=== PATIENT | male | born 1965 | race Caucasian/White ===

== ENCOUNTER 2017-05-12 02:46 | Emergency (ER) | payer OTHER ==
[2017-05-12 02:54] VITALS: BP 120/90
[2017-05-12] MEDS ORDERED: Sodium Chloride 0.9% 10 ML Syringe FLUSH PRN (03:07)
[2017-05-12] MEDS ORDERED: Ondansetron 4 MG/2 ML SDV IVPUSH ONE (03:07)
[2017-05-12] MEDS ORDERED: Sodium Chloride 0.9% 1,000 ML IV SCH (03:15)
--- NOTE | 2017-05-12 03:16 | EDM.PDOC ---
ED HPI GENERAL MEDICAL PROBLEM - General Chief Complaint: Gastrointestinal Problem Stated Complaint: HEADACHE DRY HEAVES SORE THROAT Time Seen by Provider: 05/12/17 02:55 Source of Information: Reports: Patient History Limitations: Reports: No Limitations - History of Present Illness INITIAL COMMENTS - FREE TEXT/NARRATIVE: The patient presents with a fever, cough, bodyaches, nausea, vomiting and sore throat. This all started a few days ago. He has been coughing up white/ yellowish phlegm. He has some upper abdominal pain when he vomits. He has no diarrhea. He has some chest pain at times. He does feel short of breath at times also. Onset: Gradual Duration: Day(s): (2) Location: Reports: Chest Quality: Reports: Pressure Severity: Mild Improves with: Reports: None Worsens with: Reports: Other (cough) abdomen, epigastric Pain Score (Numeric/FACES): 5 - Related Data Allergies Allergy/AdvReac Type Severity Reaction Status Date / Time vancomycin Allergy Other Verified 05/12/17 02:54 Home Meds: Home Meds Aspirin 81 mg PO BEDTIME 02/06/15 [History] Clopidogrel [Plavix] 75 mg PO BEDTIME 02/06/15 [History] Simvastatin [Zocor] 40 mg PO BEDTIME 02/06/15 [History] Azithromycin [IJD: Azithromycin] 250 mg PO DAILY #6 tab 05/12/17 [Rx] Codeine/Promethazine [Phenergan with Codeine] 10 ml PO Q6HR PRN #240 ml [Rx] Past Medical History HEENT History: Reports: Impaired Vision Cardiovascular History: Reports: High Cholesterol, Stents Gastrointestinal History: Reports: Gastritis Other Dermatologic History: New onset since 02/06/15 - Past Surgical History Other Cardiovascular Surgeries/Procedures: 2007 GI Surgical History: Reports: Colonoscopy Social & Family History - Family History Family Medical History: Noncontributory - Tobacco Use Smoking Status *Q: Former Smoker Years of Tobacco use: 20 Packs/Tins Daily: 1 Used Tobacco, but Quit: No Month Tobacco Last Used: 10 Second Hand Smoke Exposure: No - Caffeine Use Caffeine Use: Reports: Soda - Recreational Drug Use Recreational Drug Use: No ED ROS GENERAL - Review of Systems Review Of Systems: See Below Constitutional: Reports: Fever, Chills, Malaise, Weakness, Fatigue HEENT: Reports: Throat Pain Respiratory: Reports: Shortness of Breath, Cough Cardiovascular: Reports: Chest Pain Endocrine: Reports: No Symptoms GI/Abdominal: Reports: Abdominal Pain, Nausea, Vomiting. Denies: Diarrhea : Reports: No Symptoms Musculoskeletal: Reports: No Symptoms ED EXAM, GI/ABD - Physical Exam Exam: See Below Exam Limited By: No Limitations General Appearance: Alert, No Apparent Distress Ears: Normal External Exam Nose: Normal Inspection Throat/Mouth: Other (Erythema of the pharynx) Head: Atraumatic, Normocephalic Neck: Normal Inspection Respiratory/Chest: No Respiratory Distress, Lungs Clear, Normal Breath Sounds Cardiovascular: Regular Rate, Rhythm, No Edema, No Murmur GI/Abdominal Exam: Soft, Non-Tender, No Organomegaly, No Mass Back Exam: Normal Inspection EKG INTERPRETATION EKG Date: 05/12/17 Time: 03:14 Rhythm: Other (sinus tachycardia) Rate (Beats/Min): [address] Flat: Normal P-Wave: Present QRS: Normal ST-T: Normal QT: Normal Course - Vital Signs Last Recorded V/S: Last Vital Signs Temp 100 F 05/12/17 02:50 Pulse 124 H 05/12/17 02:50 Resp 20 05/12/17 02:50 BP 120/90 05/12/17 02:50 Pulse Ox 97 05/12/17 02:50 - Orders/Labs/Meds Orders: Active Orders 24 hr Category Date Time Status Cardiac Monitoring [RC] . DIRECTED Care 05/12/17 03:07 Active EKG Documentation Completion [RC] STAT Care 05/12/17 03:07 Active Peripheral IV Care [RC] . DIRECTED Care 05/12/17 03:08 Active Chest 1V Frontal [CR] Stat Exams 05/12/17 03:08 Taken CULTURE SPUTUM + SMEAR [RM] Stat Lab 05/12/17 04:25 Ordered CULTURE STREP A CONFIRMATION [RM] Stat Lab 05/12/17 03:17 Results STREP SCRN A RAPID W CULT CONF [RM] Stat Lab 05/12/17 03:17 Results Sodium Chloride 0.9% [Normal Saline] 1,000 ml Med 05/12/17 03:15 Active IV .BOLUS Sodium Chloride 0.9% [Saline Flush] Med 05/12/17 03:07 Active 10 ml FLUSH ASDIRECTED PRN cefTRIAXone [Rocephin] 1 gm Med 05/12/17 04:27 Ordered Sodium Chloride 0.9% [Normal Saline] 100 ml IV ONETIME ED Antiemetic Medication Reflex [OM.PC] Stat Oth 05/12/17 03:07 Ordered Peripheral IV Insertion Adult [OM.PC] Stat Oth 05/12/17 03:07 Ordered Medication Orders Sodium Chloride (Normal Saline) 1,000 mls @ 1,000 mls/hr IV .BOLUS MARY Last Admin: 05/12/17 03:14 Dose: 1,000 mls/hr Sodium Chloride (Saline Flush) 10 ml FLUSH ASDIRECTED PRN PRN Reason: Keep Vein Open Last Admin: 05/12/17 03:14 Dose: 10 ml Labs: Laboratory Tests 05/12/17 05/12/17 Range/Units 03:00 03:00 WBC 13.59 H (4.23-9.07) K/mm3 RBC 5.11 (4.63-6.08) M/mm3 Hgb 15.7 (13.7-17.5) gm/L Hct 45.3 (40.1-51.0) % MCV 88.6 (79.0-92.2) fl MCH 30.7 (25.7-32.2) pg MCHC 34.7 (32.2-35.5) g/dl RDW Std Deviation 41.8 (35.1-43.9) fL Plt Count 202 (163-337) K/mm3 MPV 11.2 (9.4-12.3) fl Neut % (Auto) 87.4 H (34.0-67.9) % Lymph % (Auto) 6.4 L (21.8-53.1) % [place] % (Auto) 6.0 (5.3-12.2) % Eos % (Auto) 0 L (0.8-7.0) Baso % (Auto) 0.1 (0.1-1.2) % Neut # (Auto) 11.86 H (1.78-5.38) K/mm3 Lymph # (Auto) 0.87 L (1.32-3.57) K/mm3 [place] # (Auto) 0.82 (0.30-0.82) K/mm3 Eos # (Auto) 0.00 L (0.04-0.54) K/mm3 Baso # (Auto) 0.02 (0.01-0.08) K/mm3 Manual Slide Review Normal smear Sodium 140 (136-145) mEq/L Potassium 3.9 (3.5-5.1) mEq/L Chloride 102 (98-107) mEq/L Carbon Dioxide 22 (21-32) mEq/L Anion Gap 19.9 H (5-15) BUN 14 (7-18) mg/dL Creatinine 1.3 (0.7-1.3) mg/dL Est Cr Clr Drug Dosing 67.07 mL/min Estimated GFR (MDRD) 58 (>60) mL/min BUN/Creatinine Ratio 10.8 L (14-18) Glucose 151 H (74-106) mg/dL Calcium 9.4 (8.5-10.1) mg/dL Total Bilirubin 1.1 H (0.2-1.0) mg/dL AST 22 (15-37) U/L ALT 39 (16-63) U/L Alkaline Phosphatase 106 (46-116) U/L Troponin I < 0.017 (0.00-0.056) ng/mL Total Protein 8.6 H (6.4-8.2) g/dl Albumin 4.6 (3.4-5.0) g/dl Globulin 4.0 gm/dL Albumin/Globulin Ratio 1.2 (1-2) Lipase 207 (73-393) U/L Meds: Medications Generic Name Dose Route Start Last Admin Trade Name Freq PRN Reason Stop Dose Admin Sodium Chloride 1,000 mls @ 1,000 mls/hr 05/12/17 03:15 05/12/17 03:14 Normal Saline IV 1,000 mls/hr .BOLUS MARY Administration Sodium Chloride 10 ml 05/12/17 03:07 05/12/17 03:14 Saline Flush FLUSH 10 ml ASDIRECTED PRN Administration Keep Vein Open Discontinued Medications Generic Name Dose Route Start Last Admin Trade Name Freq PRN Reason Stop Dose Admin Ondansetron HCl 4 mg 05/12/17 03:07 05/12/17 03:13 Zofran IVPUSH 05/12/17 03:08 4 mg ONETIME ONE Administration - Re-Assessments/Exams Free Text/Narrative Re-Assessment/Exam: 05/12/17 03:18 I ordered an IV NS 1L bolus, zofran 4mg IV, labs, EKG, strep and influenza. 05/12/17 04:19 His EKG shows a sinus tachycardia with no acute changes. His CXR shows no infiltrates. His strep and influenza are negative. 05/12/17 04:21 His WBC was elevated at 13.59. His anion gap is elevated at 19.9. His glucose was elevated at 151. His troponin was negative. His lipase was negative. 05/12/17 04:27 The patient feels a little better. When I went into to talk to him, he coughed up some thick sputum. I sent that for culture. His CXR did not show an infiltrate. He may have early pneumonia or bronchitis. I will give him a dose of rocephin and some zithromax for home and some phenergan with codeine. Departure - Departure Time of Disposition: 04:30 Disposition: Home, Self-Care 01 Condition: Good Clinical Impression: Viral upper respiratory illness - Discharge Information Prescriptions: Codeine/Promethazine [Phenergan with Codeine] 10 ml PO Q6HR PRN #240 ml PRN Reason: Cough Azithromycin [IJD: Azithromycin] 250 mg PO DAILY #6 tab Referrals: PCP,None [Primary Care Provider] - Forms: ED Department Discharge, ED Return to Work/School Form Additional Instructions: Take the zithromax 2 pills on day 1 and 1 pill on day 2 through 5. Take the phenergan with codeine 10mls every 4 to 6hours as needed for cough. Please return if you are worse. - My Orders Last 24 Hours: My Active Orders 05/12/17 03:07 Cardiac Monitoring [RC] . DIRECTED EKG Documentation Completion [RC] STAT Sodium Chloride 0.9% [Saline Flush] 10 ml FLUSH ASDIRECTED PRN ED Antiemetic Medication Reflex [OM.PC] Stat Peripheral IV Insertion Adult [OM.PC] Stat 05/12/17 03:08 Peripheral IV Care [RC] . DIRECTED Chest 1V Frontal [CR] Stat 05/12/17 03:15 Sodium Chloride 0.9% [Normal Saline] 1,000 ml IV .BOLUS 05/12/17 03:17 CULTURE STREP A CONFIRMATION [] Stat STREP SCRN A RAPID W CULT CONF [RM] Stat 05/12/17 04:25 CULTURE SPUTUM + SMEAR [RM] Stat 05/12/17 04:27 cefTRIAXone [Rocephin] 1 gm Sodium Chloride 0.9% [Normal Saline] 100 ml IV ONETIME - Assessment/Plan Last 24 Hours: My Active Orders 05/12/17 03:07 Cardiac Monitoring [RC] . DIRECTED EKG Documentation Completion [RC] STAT Sodium Chloride 0.9% [Saline Flush] 10 ml FLUSH ASDIRECTED PRN ED Antiemetic Medication Reflex [OM.PC] Stat Peripheral IV Insertion Adult [OM.PC] Stat 05/12/17 03:08 Peripheral IV Care [RC] . DIRECTED Chest 1V Frontal [CR] Stat 05/12/17 03:15 Sodium Chloride 0.9% [Normal Saline] 1,000 ml IV .BOLUS 05/12/17 03:17 CULTURE STREP A CONFIRMATION [] Stat STREP SCRN A RAPID W CULT CONF [RM] Stat 05/12/17 04:25 CULTURE SPUTUM + SMEAR [RM] Stat 05/12/17 04:27 cefTRIAXone [Rocephin] 1 gm Sodium Chloride 0.9% [Normal Saline] 100 ml IV ONETIME
[2017-05-12] MEDS ORDERED: cefTRIAXone 1 GM in Sodium Chloride 0.9% 100 ML IV ONE (04:27)
[2017-05-12] MEDS ORDERED: Acetaminophen 325 MG Tab PO ONE (04:33)
--- NOTE | 2017-05-12 06:56 | CR ---
Chest: Portable view of the chest was obtained. Comparison: Prior chest x-ray of 02/08/15. Heart size is normal. Minimal tortuosity of the thoracic aorta is seen. Small hiatal hernia may be present. Lungs are clear. Bony structures are grossly intact. Impression: 1. Incidental findings. Nothing acute is identified on portable chest x-ray. Diagnostic code #2
== END 2017-05-12 05:10 | disposition home or self-care (01) ==
LOC: JD.ED 02:46
DX: J06.9 Acute upper respiratory infection, unspecified (principal); E78.00 Pure hypercholesterolemia, unspecified; Z88.1 Allergy status to other antibiotic agents; Z79.82 Long term (current) use of aspirin; Z79.899 Other long term (current) drug therapy; Z87.891 Personal history of nicotine dependence
CPT/HCPCS: 36415; 71045; 80053; 83690; 84484; 85025; 87070; 87077; 87081; 87184; 87205; 87430; 87804; 93005; 96361; 96365; 96375; 99284; A9270; J0696; J2405; J7030; J7040; J7050; 93010

== ENCOUNTER 2019-12-15 17:14 | Emergency (ER) | payer OTHER ==
[2019-12-15 17:50] VITALS: BP 121/84; PULSE 113
[2019-12-15] MEDS ORDERED: Sodium Chloride 0.9% 10 ML Syringe FLUSH PRN ×2 (19:12→19:43)
--- NOTE | 2019-12-15 19:12 | EDM.PDOC ---
ED HPI GENERAL MEDICAL PROBLEM - General Chief Complaint: Back Pain or Injury Stated Complaint: BACK PAIN Time Seen by Provider: 12/15/19 19:06 Source of Information: Reports: Patient History Limitations: Reports: No Limitations - History of Present Illness INITIAL COMMENTS - FREE TEXT/NARRATIVE: 54-year-old male presents to the ED for evaluation of worsening low back pain. Patient reports that on Thursday--Dec 09-- 5 days ago he had washed up his vehicle and when he went to step out of his truck into the garage his feet were wet and when he hit the running boards he slipped and fell directly onto the concrete on his buttocks and back. States it knocked the wind out of him. Since that time he has had worsening right flank and low back pain with intermittent muscle spasms that will nearly put him down to the floor. Extremely hard to get in and out of bed on and off the toilet in and out of the vehicle etc. Is also appreciated diffuse right-sided abdominal pain worsening over the last 2 days. He still able to eat and reports his bowel function is still normal. No nausea or vomiting. He is taking Tylenol and Motrin for back pain. Of note he is on Plavix daily because of coronary artery stent. He was seen in the walk-in clinic on December 10 and had x-rays of his low back reported as normal. Onset: Sudden Onset Date: 12/10/19 Onset Time: 20:00 Duration: Day(s):, Getting Worse Location: Reports: Abdomen (Right anju-abdominal pain), Back (Right low back pain right flank pain) Quality: Reports: Ache, Other (Movements will cause sharp stabbing muscle spasms) Severity: Severe Improves with: Reports: Rest (10) Worsens with: Reports: Other (Very bad trying to get in on the bed. Bent pain to get on and off the toilet or even stand erect.), Movement Context: Reports: Trauma (Slip and fall after getting out of the vehicle on a wet floor in his garage at home.). Denies: Activity, Exercise, Lifting, Sick Contact Associated Symptoms: Denies: Confusion, Chest Pain, Cough, cough w sputum, Diaphoresis, Fever/Chills, Headaches, Loss of Appetite, Malaise, Nausea/Vomiting , Rash, Seizure, Shortness of Breath, Syncope Treatments [employer]: Reports: Acetaminophen Right Back Pain Score (Numeric/FACES): 2 - Related Data Allergies Allergy/AdvReac Type Severity Reaction Status Date / Time vancomycin Allergy Other Verified 12/01/18 21:45 Home Meds: Home Meds Clopidogrel [Plavix] 75 mg PO BEDTIME 02/06/15 [History] Simvastatin [Zocor] 40 mg PO BEDTIME 02/06/15 [History] Acetaminophen/HYDROcodone [Malcom 325-5 MG] 1 tab PO Q6H #16 tablet 12/15/19 [Rx] Past Medical History HEENT History: Reports: Impaired Vision Cardiovascular History: Reports: High Cholesterol, Stents Gastrointestinal History: Reports: Gastritis Other Hematologic History: is on blood thinners Other Dermatologic History: New onset since 02/06/15 - Past Surgical History Other Cardiovascular Surgeries/Procedures: 2007 GI Surgical History: Reports: Colonoscopy Musculoskeletal Surgical History: Reports: Arthroscopic Knee Social & Family History - Family History Family Medical History: Noncontributory - Tobacco Use Smoking Status *Q: Never Smoker - Caffeine Use Caffeine Use: Reports: Soda - Living Situation & Occupation Living situation: Reports: Occupation: Employed ED ROS GENERAL - Review of Systems Review Of Systems: See Below Constitutional: Reports: Fatigue (Not sleeping very well.). Denies: Fever, Chills, Weakness, Diaphoresis, Decreased Appetite, Weight Loss HEENT: Reports: Glasses Respiratory: Reports: No Symptoms. Denies: Shortness of Breath, Wheezing, Pleuritic Chest Pain, Cough Cardiovascular: Denies: Chest Pain, Blood Pressure Problem, Claudication, Dyspnea on Exertion, Edema, Lightheadedness, Orthopnea Endocrine: Reports: Fatigue GI/Abdominal: Reports: Abdominal Pain (Fused right anju-abdominal pain mostly in the right upper quadrant. Appreciates this pain seems to be worse with mo vement as well.) : Denies: Frequency, Hematuria Musculoskeletal: Reports: Back Pain (See history of present illness.) Skin: Reports: No Symptoms Neurological: Reports: No Symptoms Psychiatric: Reports: No Symptoms Hematologic/Lymphatic: Reports: No Symptoms Immunologic: Reports: No Symptoms ED EXAM,LOWER BACK PAIN/INJURY - Physical Exam Exam: See Below Exam Limited By: No Limitations General Appearance: Alert, WD/WN, Moderate Distress, Other (Temperature is 36.5. Heart rate at rest is 113. Respiratory to 16 BP 121/84 O2 sats 95% room air.) Eye Exam: Bilateral Eye: Normal Inspection, PERRL Throat/Mouth: Other Head: Atraumatic (Eyes any injury to his tongue or teeth when he fell.), Normocephalic Neck: Normal Inspection, Supple, Non-Tender, Full Range of Motion. No: Lymphadenopathy (L), Lymphadenopathy (R) Respiratory/Chest: No Respiratory Distress, Lungs Clear, Normal Breath Sounds, No Accessory Muscle Use, Chest Non-Tender Cardiovascular: Normal Peripheral Pulses, Regular Rate, Rhythm, No Edema, No Gallop, No Murmur, No Rub GI/Abdominal: Normal Bowel Sounds, Soft, Non-Tender, No Organomegaly, No Mass, Pelvis Stable, Distended (Mildly distended ). No: Guarding, Rigid, Rebound, Tender Back Exam: CVA Tenderness (R), Decreased Range of Motion, Muscle Spasm (Right- sided paraspinal muscle spasm more in the quadratus lumborum muscles lateral to the transverse spinous processes. Small point of tenderness tenderness appears to be adjacent to the L2 L1 spinous processes.). No: Vertebral Tenderness Extremities: Normal Inspection, Normal Range of Motion, Non-Tender Neurological: Alert, Normal Mood/Affect, Normal Dorsiflexion Psychiatric: Normal Affect, Normal Mood Skin Exam: Warm, Dry, Intact, Normal Color, No Rash Course - Vital Signs Last Recorded V/S: Last Vital Signs Temp 36.5 C 12/15/19 17:46 Pulse 113 H 12/15/19 17:46 Resp 16 12/15/19 17:46 BP 121/84 12/15/19 17:46 Pulse Ox 95 12/15/19 17:46 - Orders/Labs/Meds Orders: Active Orders 24 hr Category Date Time Status Peripheral IV Insertion Adult [OM.PC] Stat Oth 12/15/19 19:13 Ordered Meds: Medications Discontinued Medications Generic Name Dose Route Start Last Admin Trade Name Freq PRN Reason Stop Dose Admin Iopamidol 100 ml 12/15/19 19:43 12/15/19 19:54 Isovue-300 (61%) IVPUSH 12/15/19 19:44 100 ml ONETIME ONE Administration Sodium Chloride 10 ml 12/15/19 19:12 Saline Flush FLUSH ASDIRECTED PRN Keep Vein Open Sodium Chloride 10 ml 12/15/19 19:43 12/15/19 19:54 Saline Flush FLUSH 10 ml ONETIME PRN Administration Keep Vein Open - Radiology Interpretation Free Text/Narrative:: 54-year-old male presents to the ED for evaluation of worsening right lower back pain since falling on the concrete 5 days ago. Of note he is on Plavix 75 mg daily because of a stent in his heart. He reports slipping and falling after getting out of his vehicle that he had just washed. His shoes were wet and he slipped off the running boards landing hard on the concrete knocked the wind out of him etc. Subsequently he is developed gradually worsening right flank and low back pain. Pain is constant but worsens with movement especially trying to lie down or getting out of the vehicle or stand erect. It is localized primarily to the right lower back and does not radiate down his extremities. He feels it does radiate somewhat into his right upper quadrant his abdomen. He feels back pain down towards his right groin at times. Appetite remains normal. Bowel movements are normal. Plan CT lumbar spine and CT abdomen and pelvis with IV contrast. - Re-Assessments/Exams Free Text/Narrative Re-Assessment/Exam: 12/15/19 20:40 : CT of the abdomen and pelvis has been completed. IV contrast only was utilized. Liver contains no focal parenchymal abnormalities. Spleen appears to be within normal limits. Small hiatal hernia is appreciated. Visualized lung bases show nothing acute. Adrenal glands show no nodules. Pancreas shows no abnormality kidneys show symmetric contrast enhancement without hydronephrosis or mass. Aorta shows no aneurysm. No retroperitoneal adenopathy or mesenteric abnormalities are seen. No pelvic mass or adenopathy noted. Small fat-containing bilateral inguinal hernias are appreciated. Delayed images show contrast within the distal ureters and within the bladder. Nothing acute is seen on CT study of the abdomen pelvis. CT of the lumbar spine reveals a superior compression deformity with anterior wedging of thoracic 11 vertebra. This is believed to be acute and correlates with the patient's pain. Minimal endplate concavity of T12 is seen which is most likely old. Other vertebral body heights are maintained. No fracture is seen within the posterior elements. No bony central or bony neuroforaminal stenosis is seen. No abnormal subluxation is seen. 12/15/19 21:15: I have discussed the findings of the CT exam with the patient. At this time he did not request any pain medication but after thought 30 minutes later he decided that he would except a prescription for Percocet 5/325 mg to be used only as needed for pain relief. He has been getting by with Tylenol up until now. He recognizes significant paraspinal muscle spasm with movement and even deep breathing or coughing. He will be referred to [facility] tomorrow for a measurement for a low back corset brace to support his lumbar and lower thoracic spine. Advised follow-up with his primary care physician in the next few days if he decides that he wants to pursue a neurosurgical consultation and potential kyphoplasty. 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 Suggested off of work for the next 3 weeks due to injury. Follow-up with his primary care physician if further time off is going to be required. A neurosurgical consultation for potential kyphoplasty is in order. At this time patient is ambivalent about whether he wishes to pursue a surgical approach. Departure - Departure Time of Disposition: 21:15 Disposition: Home, Self-Care 01 Condition: Fair Clinical Impression: Compression fracture of thoracic vertebra Qualifiers: Encounter type: initial encounter Thoracic vertebra fracture level: T11 Qualified Code(s): S22.080A - Wedge compression fracture of T11-T12 vertebra, initial encounter for closed fracture - Discharge Information *PRESCRIPTION DRUG MONITORING PROGRAM REVIEWED*: Not Applicable *COPY OF PRESCRIPTION DRUG MONITORING REPORT IN PATIENT NICOLE: Not Applicable Prescriptions: Acetaminophen/HYDROcodone [Malcom 325-5 MG] 1 tab PO Q6H #16 tablet Instructions: Thoracic Spine Fracture Referrals: PCP,None [Primary Care Provider] - Forms: ED Department Discharge, ED Return to Work/School Form Additional Instructions: Evaluation in the emergency room tonight in regards to diffuse low back pain --more so on the Rt side with intermittent severe muscle spasms since fall at home in your garage 5 days ago. Exam reveals Rt sided paraspinal muscle spasm . You were also having a lot of Rt sided abdominal discomfort therefore CT of the lumbar spine and abdomen were carried out in the the ED tonight. They reveal a compression fracture of the upper ( superior) end plate of thoracic vertebra number 11. Ct of the abdomen is essentially normal with no internal damage to liver or kidney or lower ribs identified. Treatment is time to heal --usually a good 6-8 weeks. You will need to be fitted for a lower back brace through [facility] tomorrow to support your back. Med Chikka is up by [employer]. Continue Tylenol for pain as needed. Suggest follow up with Dr Dyer for a referral to back surgeon to consider options of possible kyphoplasty to the fractured vertebra. Sepsis Event Note (ED) - Evaluation Sepsis Screening Result: No Definite Risk - Focused Exam Vital Signs: Vital Signs Temp Pulse Resp BP Pulse Ox 12/15/19 17:46 36.5 C 113 H 16 121/84 95 - My Orders Last 24 Hours: My Active Orders 12/15/19 19:13 Peripheral IV Insertion Adult [OM.PC] Stat - Assessment/Plan Last 24 Hours: My Active Orders 12/15/19 19:13 Peripheral IV Insertion Adult [OM.PC] Stat
[2019-12-15] MEDS ORDERED: Iopamidol 612 MG/ML 100 ML Bottle IVPUSH ONE (19:43)
--- NOTE | 2019-12-15 20:30 | CT ---
CT lumbar spine Technique: Multiple axial sections were obtained from the lower T10 level inferiorly through the L5-S1 level. Reconstructed sagittal and coronal images were obtained. Findings: Superior compression deformity with anterior wedging is noted of T11. This is believed to be acute. Minimal endplate concavity of T12 is seen which is most likely old. Other vertebral body heights are maintained. No fracture is seen within the posterior elements. No bony central or bony neural foraminal stenosis is seen. No abnormal subluxation is seen. Impression: 1. Mild superior compression deformity with anterior wedging of T11 which is most likely acute. 2. Other findings as noted above which are felt to be chronic. No other acute abnormality is seen. Diagnostic code #3 This report was dictated in MDT
--- NOTE | 2019-12-15 20:32 | CT ---
CT abdomen and pelvis Technique: Multiple axial sections were obtained from above the dome of the diaphragm inferiorly through the pubic symphysis. Intravenous contrast was utilized. Delayed images were also obtained through the bladder. Reconstructed coronal and sagittal images were obtained. Visualized lung bases show nothing acute. Liver contains no focal parenchymal abnormality. Spleen appears within normal limits. Small hiatal hernia is noted. Adrenal glands show no nodule. Pancreas shows no abnormality. Kidneys show symmetric contrast enhancement without hydronephrosis or mass. Aorta shows no aneurysm. No retroperitoneal adenopathy or mesenteric abnormalities are seen. No pelvic mass or adenopathy is seen. Small fat-containing bilateral inguinal hernias are noted. Delayed images show contrast within the distal ureters and within the bladder. Impression: 1. Nothing acute is seen on CT study of the abdomen and pelvis. Diagnostic code #2 This report was dictated in MDT
== END 2019-12-15 21:42 | disposition home or self-care (01) ==
LOC: JD.ED 17:14
DX: S22.089A Unspecified fracture of T11-T12 vertebra, initial encounter for closed fracture (principal); E78.00 Pure hypercholesterolemia, unspecified; Z88.1 Allergy status to other antibiotic agents; Z95.5 Presence of coronary angioplasty implant and graft; Z79.899 Other long term (current) drug therapy; Z79.02 Long term (current) use of antithrombotics/antiplatelets; W01.198A Fall on same level from slipping, tripping and stumbling with subsequent striking against other object, initial encounter
CPT/HCPCS: 72131; 74177; 99283; Q9967

== ENCOUNTER 2020-04-10 15:27 | Emergency (ER) | payer OTHER ==
[2020-04-10 16:28] VITALS: BP 127/89; PULSE 88
--- NOTE | 2020-04-10 17:41 | EDM.PDOC ---
ED HPI GENERAL MEDICAL PROBLEM - General Chief Complaint: Back Pain or Injury Stated Complaint: BACK PAIN Time Seen by Provider: 04/10/20 16:50 Source of Information: Reports: Patient, RN Notes Reviewed - History of Present Illness INITIAL COMMENTS - FREE TEXT/NARRATIVE: 55 yr old male with onset of L back pain 2 days ago. [place] a "pop" as he moved in bed. No radiation of low back pain but does have numbness that shoots down both leg intermitently. Middle Back Pain Score (Numeric/FACES): 3 - Related Data Allergies Allergy/AdvReac Type Severity Reaction Status Date / Time vancomycin Allergy Other Verified 04/10/20 16:28 Home Meds: Home Meds Clopidogrel [Plavix] 75 mg PO BEDTIME 02/06/15 [History] Simvastatin [Zocor] 40 mg PO BEDTIME 02/06/15 [History] Levothyroxine [Synthroid] 50 mcg PO DAILY 04/10/20 [History] predniSONE [Prednisone] 50 mg PO DAILY #6 tablet 04/10/20 [Rx] Past Medical History HEENT History: Reports: Impaired Vision Cardiovascular History: Reports: High Cholesterol, Stents Gastrointestinal History: Reports: Gastritis Other Hematologic History: is on blood thinners Other Dermatologic History: New onset since 02/06/15 - Past Surgical History Other Cardiovascular Surgeries/Procedures: 2007 GI Surgical History: Reports: Colonoscopy Musculoskeletal Surgical History: Reports: Arthroscopic Knee Social & Family History - Family History Family Medical History: No Pertinent Family History - Caffeine Use Caffeine Use: Reports: Soda - Living Situation & Occupation Living situation: Reports: Occupation: Employed ED ROS GENERAL - Review of Systems Review Of Systems: See Below Constitutional: Denies: Fever, Chills, Diaphoresis HEENT: Reports: No Symptoms Respiratory: Reports: No Symptoms Cardiovascular: Denies: Chest Pain GI/Abdominal: Denies: Abdominal Pain : Reports: No Symptoms Musculoskeletal: Reports: Back Pain Skin: Reports: No Symptoms Neurological: Reports: Numbness (bilat LE). Denies: Difficulty Walking, Weakness ED EXAM,LOWER BACK PAIN/INJURY - Physical Exam Exam: See Below General Appearance: Alert, No Apparent Distress Head: Atraumatic Neck: Supple Respiratory/Chest: No Respiratory Distress, Lungs Clear, Normal Breath Sounds Cardiovascular: Regular Rate, Rhythm GI/Abdominal: Soft, Non-Tender Back Exam: Paraspinal Tenderness (mild lower mid back, no visible swelling, wamrth or erythema). No: Vertebral Tenderness Neurological: Alert, Normal Plantar Flexion, No Motor/Sensory Deficits, Oriented x 3, Other (no pain with st leg raising) Skin Exam: Warm, Normal Color, No Rash Course - Vital Signs Last Recorded V/S: Last Vital Signs Temp 98.1 F 04/10/20 16:22 Pulse 88 04/10/20 16:22 Resp 20 04/10/20 16:22 BP 127/89 04/10/20 16:22 Pulse Ox 95 04/10/20 16:22 - Orders/Labs/Meds Orders: Active Orders 24 hr Category Date Time Status Lumbar Spine 2 or 3V [CR] Stat Exams 04/10/20 17:00 Taken - Re-Assessments/Exams Free Text/Narrative Re-Assessment/Exam: 04/10/20 18:51 X rays no visible fx Departure - Departure Time of Disposition: 17:38 Disposition: Home, Self-Care 01 Condition: Fair Clinical Impression: Low back pain due to bilateral sciatica - Discharge Information Prescriptions: predniSONE [Prednisone] 50 mg PO DAILY #6 tablet Instructions: Sciatica, [id number] Referrals: Jagdish Zhou MD [Primary Care Provider] - Forms: ED Department Discharge Additional Instructions: Rest back, no heavy lifting. X rays of your back today look good. No fx. Alte rnate ice and heat as needed. Prednisone 50 mg this PM and than q AM for the next 5 days. Prescription has been sent to [facility]. Continue tylenol 3 to 4 times daily as needed. See your chiropractor as needed. Follow up clinic if not much better within 5 to 7 days as expected. Return to ED as needed if symptoms worsening in any way. Sepsis Event Note (ED) - Evaluation Sepsis Screening Result: No Definite Risk - Focused Exam Vital Signs: Vital Signs Temp Pulse Resp BP Pulse Ox 04/10/20 16:22 98.1 F 88 20 127/89 95 - My Orders Last 24 Hours: My Active Orders 04/10/20 17:00 Lumbar Spine 2 or 3V [CR] Stat - Assessment/Plan Last 24 Hours: My Active Orders 04/10/20 17:00 Lumbar Spine 2 or 3V [CR] Stat
--- NOTE | 2020-04-11 08:41 | CR ---
Lumbar spine: AP, lateral and coned-down lateral view centered to the lumbosacral junction were obtained. Comparison: Prior CT lumbar spine study of 12/15/19. Disc spaces are maintained. Mild to moderate anterior wedging of T11 is partially seen. Other vertebral body heights are maintained. Very minimal scattered endplate osteophytes are seen. Pedicles are intact. Sacroiliac joints are normal. Impression: 1. Mild to moderate anterior wedging of T11 which is felt to be old. 2. Other minimal degenerative change as noted above. Diagnostic code #2
== END 2020-04-10 17:55 | disposition home or self-care (01) ==
LOC: JD.ED 15:27
DX: M54.41 Lumbago with sciatica, right side (principal); M54.42 Lumbago with sciatica, left side; E78.00 Pure hypercholesterolemia, unspecified; Z79.899 Other long term (current) drug therapy; Z79.02 Long term (current) use of antithrombotics/antiplatelets; Z88.1 Allergy status to other antibiotic agents; Z79.01 Long term (current) use of anticoagulants
CPT/HCPCS: 72100; 72100-26; 99283

== ENCOUNTER 2021-05-06 20:35 | Emergency (ER) | payer OTHER ==
[2021-05-06 21:42] VITALS: BP 113/75; PULSE 99
[2021-05-06 22:45] LABS: CORONAVIRUS COVID-19 NAA POSITIVE (NEGATIVE)
== END 2021-05-06 23:22 | disposition home or self-care (01) ==
LOC: JD.ED 20:35
DX: U07.1 COVID-19 (principal); E78.00 Pure hypercholesterolemia, unspecified; Z88.1 Allergy status to other antibiotic agents; Z79.899 Other long term (current) drug therapy
CPT/HCPCS: 0240U; 99284

== ENCOUNTER 2022-08-14 04:35 | Emergency (ER) | payer OTHER ==
[2022-08-14] MEDS ORDERED: Alum Hydrox/Mag Hydrox/Simeth 30 ML, Lidocaine 2% 15 ML PO STA ×4 (05:01→05:46)
[2022-08-14] MEDS ORDERED: Sucralfate Suspension 1 GM/10 ML Cup PO ONE (05:01)
[2022-08-14] MEDS ORDERED: Famotidine 20 MG/2 ML SDV IVPUSH STA (05:02)
[2022-08-14] MEDS ORDERED: Ondansetron 4 MG/2 ML SDV IVPUSH ONE (06:51)
[2022-08-14] MEDS ORDERED: HYDROmorphone 0.5 MG/0.5 ML Syringe IVPUSH ONE (06:51)
[2022-08-14] MEDS ORDERED: Sodium Chloride 0.9% 1,000 ML IV SCH (07:00)
[2022-08-14 09:29] VITALS: BP 111/80; PULSE 62
== END 2022-08-14 09:47 | disposition home or self-care (01) ==
LOC: JD.ED 04:35
DX: K80.50 Calculus of bile duct without cholangitis or cholecystitis without obstruction (principal); K21.9 Gastro-esophageal reflux disease without esophagitis; I25.10 Atherosclerotic heart disease of native coronary artery without angina pectoris; E78.00 Pure hypercholesterolemia, unspecified; Z88.1 Allergy status to other antibiotic agents; Z79.02 Long term (current) use of antithrombotics/antiplatelets; Z79.899 Other long term (current) drug therapy; Z86.16 Personal history of COVID-19; Z87.891 Personal history of nicotine dependence
CPT/HCPCS: 36415; 71046; 74177; 76705; 80053; 83880; 84484; 85025; 85379; 93005; 96361; 96374; 96375; 99285; A9270; J1170; J2405; J3490; J7030; 93010; 99284

== ENCOUNTER 2022-09-25 13:43 | Emergency (ER) | payer OTHER ==
[2022-09-25] MEDS ORDERED: Ketorolac 60 MG/2 ML SDV IM ONE (14:21)
[2022-09-25 16:15] VITALS: BP 115/77; PULSE 88
== END 2022-09-25 16:17 | disposition home or self-care (01) ==
LOC: JD.ED 13:43
DX: S22.42XA Multiple fractures of ribs, left side, initial encounter for closed fracture (principal); I25.10 Atherosclerotic heart disease of native coronary artery without angina pectoris; E78.00 Pure hypercholesterolemia, unspecified; Z86.16 Personal history of COVID-19; Z88.1 Allergy status to other antibiotic agents; Z79.02 Long term (current) use of antithrombotics/antiplatelets; Z79.899 Other long term (current) drug therapy; W17.89XA Other fall from one level to another, initial encounter
CPT/HCPCS: 71250; 74176; 96372; 99283; J1885